=== PATIENT | male | born 1995 | race Caucasian/White ===

== ENCOUNTER 2017-02-22 20:37 | Emergency (ER) | payer BC ==
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
--- NOTE | 2017-02-22 22:20 | CT ---
EXAMINATION TYPE: CT brain nik paz con DATE OF EXAM: 02/22/2017 COMPARISON: 05/08/[address] scan HISTORY: Hyperflexion injury, pain to left side of neck. 30 second episode of being unable to move le gs. CT DLP: 1749.00 mGycm Automated exposure control for dose reduction was used. TECHNIQUE: CT scan of the head and cervical spine are performed without contrast. FINDINGS: Ventricles and sulci appear normal. There is no mass effect nor midline shift. There is n o sign of intracranial hemorrhage. The calvarium is intact. Cervical vertebra have normal alignment. Disc spaces are normal. Posterior elements are intact. There is no evidence for fracture. IMPRESSION: Negative CT scan of the brain. No change. Negative CT scan of the cervical spine.
[2017-02-22 23:13] VITALS: BP 112/80; PULSE 78; RESP 20; TEMP 98.2
== END 2017-02-22 23:13 | disposition home or self-care (01) ==
LOC: EC 20:37
DX: S16.1XXA Strain of muscle, fascia and tendon at neck level, initial encounter (principal)
CPT/HCPCS: 70450; 72125; 99283

== ENCOUNTER → 2019-10-09 | Outpatient (CLI) | payer BC ==
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
== END | disposition home or self-care (01) ==
LOC: RADXRMAIN 13:41
PROVIDERS: ATTEND Family Medicine
DX: R07.81 Pleurodynia (principal)
CPT/HCPCS: 71046

== ENCOUNTER 2021-01-22 16:21 | Emergency (ER) | payer BC ==
[2021-01-22 16:27] VITALS: BP 149/98; PULSE 97; RESP 18; TEMP 98
[2021-01-22] MEDS ORDERED: IBUPROFEN 600 MG TAB PO STA (16:55)
[2021-01-22] MEDS ORDERED: ACETAMINOPHEN TAB 325 MG TAB PO STA (16:55)
[2021-01-22] MEDS ORDERED: DIPH,PERTUS(ACELL)TETVAC-LF 0.5 ML VIAL IM ONE (16:55)
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
--- NOTE | 2021-01-22 17:26 | XR ---
EXAMINATION TYPE: XR shoulder complete RT DATE OF EXAM: 01/22/2021 COMPARISON: NONE HISTORY: Trauma. Pain. TECHNIQUE: 3 views FINDINGS: Glenohumeral joint is intact. There is malalignment of the AC joint. There is widening of t he AC joint space that measures 12 mm and there is also separation at the coracoclavicular joint. The re is inferior displacement of the acromion 7 mm. No fracture seen. IMPRESSION: There is evidence of ligamentous tear at the AC joint and coracoclavicular joint.
[2021-01-22] MEDS ORDERED: ACET/COD 300 MG/30 MG STARTER PACK 6 TAB BTL PO STA (18:11)
== END 2021-01-22 18:20 | disposition home or self-care (01) ==
LOC: EC 16:21
DX: S43.101A Unspecified dislocation of right acromioclavicular joint, initial encounter (principal); S43.81XA Sprain of other specified parts of right shoulder girdle, initial encounter; S30.810A Abrasion of lower back and pelvis, initial encounter; F17.290 Nicotine dependence, other tobacco product, uncomplicated; J45.909 Unspecified asthma, uncomplicated; Z23 Encounter for immunization; V86.06XA Driver of dirt bike or motor/cross bike injured in traffic accident, initial encounter; Y93.55 Activity, bike riding; Y92.410 Unspecified street and highway as the place of occurrence of the external cause
CPT/HCPCS: 90471; 90715; 99284

== ENCOUNTER 2021-03-13 19:20 | Emergency (ER) | payer BC, OTHER ==
[2021-03-13 19:58] VITALS: BP 128/90; PULSE 94; RESP 18; TEMP 98.6
[2021-03-13 20:58] LABS: Amphetamine Screen,Urine Not Detected (NotDetected); Barbiturate Screen,Urine Not Detected (NotDetected); Benzodiazepines Screen,Urine Not Detected (NotDetected); Cocaine Screen,Urine Not Detected (NotDetected); Methadone Screen, Urine Not Detected (NotDetected); Opiate Screen,Urine Not Detected (NotDetected); Oxycodone Screen, Urine Not Detected (NotDetected); Phencyclidine Screen,Urine Not Detected (NotDetected); Tricyclic Antidepressant,Urine Not Detected (NotDetected); Urn Cannabinoid Scrn Detected (NotDetected)
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
== END 2021-03-13 21:55 | disposition home or self-care (01) ==
LOC: EC 19:20
DX: Z02.83 Encounter for blood-alcohol and blood-drug test (principal); J45.909 Unspecified asthma, uncomplicated; F17.290 Nicotine dependence, other tobacco product, uncomplicated
CPT/HCPCS: 80306; 99282

== ENCOUNTER 2021-03-25 11:14 | Emergency (ER) | payer BC ==
[2021-03-25] MEDS ORDERED: ONDANSETRON 4 MG/2 ML VIAL IVP STA (11:20)
[2021-03-25] MEDS ORDERED: SODIUM CHLORIDE 0.9% 1,000 ML IV STA (11:20)
[2021-03-25] MEDS ORDERED: KETOROLAC 15 MG/ML 1 ML VIAL IVP STA (11:20)
[2021-03-25] MEDS ORDERED: HYDROmorphone 0.5 MG/0.5 ML SYRINGE IVP STA (11:20)
[2021-03-25 11:26] VITALS: TEMP 97.2
--- NOTE | 2021-03-25 11:39 | ED ---
General Adult HPI - General Chief complaint: Abdominal Pain Stated complaint: LL QUADRANT PAIN Time Seen by Provider: 03/25/21 11:15 Source: patient, EMS, RN notes reviewed, old records reviewed Mode of arrival: EMS Limitations: physical limitation - History of Present Illness Initial comments: This is a 26-year-old male who presents emergency department stating that he had sudden onset of left lower quadrant abdominal pain that radiates to his back per patient states never expressing like this before. According to EMS he Passed out secondary to pain and was very nauseated. Patient is also diaphoretic according to EMS. Patient states he has had no difficulty urinating no hematuria. Patient denies feeling bad prior to the sudden onset of pain. Patient denies any trauma. Patient denies any chest pain difficulty breathing shortness of breath. - Related Data Previous Rx's Medication Instructions Recorded Ketorolac [Toradol] 10 mg PO Q6HR #15 tab 03/25/21 Tamsulosin [Flomax] 0.4 mg PO DAILY #10 cap 03/25/21 Allergies Allergy/AdvReac Type Severity Reaction Status Date / Time No Known Allergies Allergy Verified 03/25/21 11:57 Review of Systems ROS Statement: Those systems with pertinent positive or pertinent negative responses have been documented in the HPI. ROS Other: All systems not noted in ROS Statement are negative. Past Medical History Past Medical History: Asthma Additional Past Medical History / Comment(s): Hyponatremia History of Any Multi-Drug Resistant Organisms: None Reported Past Surgical History: Ear Surgery, Orthopedic Surgery, Tonsillectomy Past Psychological History: No Psychological Hx Reported Smoking Status: Vaper Past Alcohol Use History: None Reported Past Drug Use History: None Reported, Marijuana General Exam - General Exam Comments Initial Comments: GENERAL: Patient is well-developed and well-nourished. Patient is nontoxic and well- hydrated and is in severe distress. ENT: Neck is soft and supple. No significant lymphadenopathy is noted. Oropharynx is clear. Moist mucous membranes. Neck has full range of motion without eliciting any pain. EYES: The sclera were anicteric and conjunctiva were pink and moist. Extraocular movements were intact and pupils were equal round and reactive to light. Eyelids were unremarkable. PULMONARY: Unlabored respirations. Good breath sounds bilaterally. No audible rales rhonchi or wheezing was noted. CARDIOVASCULAR: There is a regular rate and rhythm without any murmurs gallops or rubs. ABDOMEN: Left lower quadrant tenderness with palpation. GENITALIA: On examination there was no tenderness swelling or redness of the scrotum or testicle. There was no hernia noted. I could not stand the patient up to do a better hernia exam because of his pain. SKIN: Skin is clear with no lesions or rashes and otherwise unremarkable. NEUROLOGIC: Patient is alert and oriented x3. Cranial nerves II through XII are grossly intact. Motor and sensory are also intact. Normal speech, volume and content. Symmetrical smile. MUSCULOSKELETAL: Normal extremities with adequate strength and full range of motion. LYMPHATICS: No significant lymphadenopathy is noted PSYCHIATRIC: Normal psychiatric evaluation. Limitations: physical limitation Course Vital Signs 03/25/21 03/25/21 03/25/21 11:16 11:55 12:26 Temperature 97.2 F L Pulse Rate 80 80 77 Respiratory 26 H 18 18 Rate Blood Pressure 136/96 134/63 O2 Sat by Pulse 98 97 Oximetry Medical Decision Making - Medical Decision Making Patient received Toradol Dilaudid and Zofran. Computed tomography scan shows a 1-2 mm obstructing kidney stone in the left with hydroureter. Patient had pain relief with medications given an ED. - Lab Data Result diagrams: 03/25/21 11:51 03/25/21 11:51 Lab Results 03/25/21 03/25/21 03/25/21 Range/Units 11:51 11:51 11:51 WBC 8.3 (3.8-10.6) k/uL RBC 5.18 (4.30-5.90) m/uL Hgb 16.1 (13.0-17.5) gm/dL Hct 45.1 (39.0-53.0) % MCV 87.0 (80.0-100.0) fL MCH 31.0 (25.0-35.0) pg MCHC 35.7 (31.0-37.0) g/dL RDW 11.8 (11.5-15.5) % Plt Count 218 (150-450) k/uL MPV 7.5 Neutrophils % 64 % Lymphocytes % 25 % Monocytes % 4 % Eosinophils % 5 % Basophils % 1 % Neutrophils # 5.3 (1.3-7.7) k/uL Lymphocytes # 2.1 (1.0-4.8) k/uL Monocytes # 0.3 (0-1.0) k/uL Eosinophils # 0.4 (0-0.7) k/uL Basophils # 0.1 (0-0.2) k/uL Sodium 139 (137-145) mmol/L Potassium 3.9 (3.5-5.1) mmol/L Chloride 107 (98-107) mmol/L Carbon Dioxide 20 L (22-30) mmol/L Anion Gap 12 mmol/L BUN 15 (9-20) mg/dL Creatinine 0.91 (0.66-1.25) mg/dL Est GFR (CKD-EPI)AfAm >90 (>60 ml/min/1.73 sqM) Est GFR (CKD-EPI)NonAf >90 (>60 ml/min/1.73 sqM) Glucose 110 H (74-99) mg/dL Plasma Lactic Acid Nathen 3.1 H* (0.7-2.0) mmol/L Calcium 9.6 (8.4-10.2) mg/dL Total Bilirubin 0.8 (0.2-1.3) mg/dL AST 43 (17-59) U/L ALT 48 (4-49) U/L Alkaline Phosphatase 73 (38-126) U/L Total Protein 7.0 (6.3-8.2) g/dL Albumin 4.2 (3.5-5.0) g/dL Amylase 33 (30-110) U/L Lipase 65 (23-300) U/L Disposition Clinical Impression: Kidney stone Disposition: HOME SELF-CARE Condition: Good Instructions (If sedation given, give patient instructions): Kidney Stones (ED) Prescriptions: Tamsulosin [Flomax] 0.4 mg PO DAILY #10 cap Ketorolac [Toradol] 10 mg PO Q6HR #15 tab Is patient prescribed a controlled substance at d/c from ED?: No Referrals: Elliott Lopez MD [Primary Care Provider] - 1-2 days Time of Disposition: 12:48
[2021-03-25 11:56] VITALS: RESP 18
--- NOTE | 2021-03-25 11:58 | XR ---
EXAMINATION TYPE: XR KUB DATE OF EXAM: 03/25/2021 COMPARISON: NONE HISTORY: Pain TECHNIQUE: One view abdominal series FINDINGS: The osseous structures are intact. The bowel gas pattern is nonspecific. Lung bases are clear. IMPRESSION: 1. Nonspecific abdomen.
--- NOTE | 2021-03-25 12:03 | CT ---
EXAMINATION TYPE: CT abdomen pelvis wo con DATE OF EXAM: 03/25/2021 COMPARISON: None HISTORY: LLQ pain, possible torsion per RN CT DLP: 1368.4 mGycm Automated exposure control for dose reduction was used. TECHNIQUE: Helical acquisition of images was performed from the lung bases through the pelvis. FINDINGS: LUNG BASES: No significant abnormality is appreciated. LIVER/GB: Diffuse low-attenuation throughout the liver correlate for hepatic steatosis or hepatocellu lar disease. PANCREAS: No significant abnormality is seen. SPLEEN: No significant abnormality is seen. ADRENALS: No significant abnormality is seen. KIDNEYS: Mild to moderate left hydronephrosis with a 2 mm left UVJ calcification a result in obstruct ion. ADENOPATHY: None visualized. OSSEOUS STRUCTURES: No significant abnormality is seen. BOWEL: No significant abnormality is seen. OTHER: No free fluid or free air. Aorta of normal caliber. IMPRESSION: MILD TO MODERATE LEFT HYDRONEPHROSIS SECONDARY TO OBSTRUCTING DISTAL UVJ CALCULUS MEASURING 1 TO 2 MM . HEPATIC STEATOSIS
[2021-03-25 12:12] LABS: Basophils # (A) 0.1 k/uL (0-0.2); Basophils % (A) 1 %; Eosinophils # (A) 0.4 k/uL (0-0.7); Eosinophils % (A) 5 %; HCT 45.1 % (39.0-53.0); HGB 16.1 gm/dL (13.0-17.5); Lymphocytes # (A) 2.1 k/uL (1.0-4.8); Lymphocytes % (A) 25 %; MCHC 35.7 g/dL (31.0-37.0); Mean Platelet Volume 7.5; Monocytes # (A) 0.3 k/uL (0-1.0); Monocytes % (A) 4 %; Neutrophils # (A) 5.3 k/uL (1.3-7.7); Neutrophils % (A) 64 %; Platelet Count 218 k/uL (150-450); RBC 5.18 m/uL (4.30-5.90); RDW 11.8 % (11.5-15.5); WBC 8.3 k/uL (3.8-10.6)
[2021-03-25 12:20] LABS: ALT 48 U/L (4-49); AST 43 U/L (17-59); African American GFR (CKD) >90 (>60 ml/min/1.73 sqM); Albumin 4.2 g/dL (3.5-5.0); Alkaline Phosphatase 73 U/L (38-126); Amylase 33 U/L (30-110); Anion Gap 12 mmol/L; Blood Urea Nitrogen 15 mg/dL (9-20); Calcium 9.6 mg/dL (8.4-10.2); Carbon Dioxide 20 mmol/L (22-30); Chloride 107 mmol/L (98-107); Glucose 110 mg/dL (74-99); Lipase 65 U/L (23-300); Non-African American GFR(CKD) >90 (>60 ml/min/1.73 sqM); Potassium 3.9 mmol/L (3.5-5.1); Sodium 139 mmol/L (137-145); Total Bilirubin 0.8 mg/dL (0.2-1.3)
[2021-03-25] MEDS ORDERED: ACET/COD 300 MG/30 MG STARTER PACK 6 TAB BTL PO STA (13:01)
[2021-03-25 13:09] VITALS: BP 128/76; PULSE 88
== END 2021-03-25 13:17 | disposition home or self-care (01) ==
LOC: EC 11:14
DX: N20.0 Calculus of kidney (principal); J45.909 Unspecified asthma, uncomplicated; F17.290 Nicotine dependence, other tobacco product, uncomplicated
CPT/HCPCS: 80053; 82150; 83605; 83690; 85025; 74018; 74176; 96374; 96375; 96361; 99285; J2405; J1885; J1170

== ENCOUNTER 2022-10-18 06:45 | Emergency (ER) | payer OTHER ==
[2022-10-18 06:58] VITALS: RESP 18; TEMP 98.3
[2022-10-18] MEDS ORDERED: KETOROLAC 15 MG/ML 1 ML VIAL IM STA (08:30)
--- NOTE | 2022-10-18 08:35 | ED ---
Head Injury HPI - General Chief complaint: Head Injury Stated complaint: [facility] - Head Injury Time Seen by Provider: 10/18/22 08:16 Source: patient, RN notes reviewed Mode of arrival: ambulatory Limitations: no limitations - History of Present Illness Initial comments: Patient is a pleasant 27 her old male presenting to the emergency room at the direction of his employer when a brass fitting flew out of the machine at his work hitting him on the left upper side of his head. He was wearing his hard hat and the brass fitting hit the hard hat. He states that shortly after the event he took a Motrin for pain which was helpful but it has been off. He states that at the time of impact his vision in both eyes went black for a few seconds however he denies any loss of consciousness or fall to the ground. He is complaining of tenderness at the site of impact but denies any generalized headache, dizziness, altered mental status, confusion, nausea or vomiting. His past medical history significant for asthma and hyponatremia. - Related Data Previous Rx's Medication Instructions Recorded Ketorolac [Toradol] 10 mg PO Q6HR #15 tab 03/25/21 Tamsulosin [Flomax] 0.4 mg PO DAILY #10 cap 03/25/21 Ondansetron Odt [Zofran Odt] 4 mg PO Q8HR PRN #30 tab 10/20/22 Allergies/Adverse reactions: Allergies Allergy/AdvReac Type Severity Reaction Status Date / Time No Known Allergies Allergy Verified 10/20/22 05:13 Review of Systems ROS Statement: Those systems with pertinent positive or pertinent negative responses have been documented in the HPI. ROS Other: All systems not noted in ROS Statement are negative. Past Medical History Past Medical History: Asthma Additional Past Medical History / Comment(s): Hyponatremia History of Any Multi-Drug Resistant Organisms: None Reported Past Surgical History: Ear Surgery, Orthopedic Surgery, Tonsillectomy Past Psychological History: No Psychological Hx Reported Smoking Status: Vaper Past Alcohol Use History: Occasional Past Drug Use History: None Reported, Marijuana General Exam Limitations: no limitations General appearance: alert, in no apparent distress Head exam: Present: normocephalic, normal inspection, other (tenderness left parietal region ) Expanded Head exam: Absent: laceration, abrasion, hematoma, tenderness of temporal artery Eye exam: Present: normal appearance, PERRL, EOMI. Absent: scleral icterus, conjunctival injection, periorbital swelling ENT exam: Present: normal exam, normal oropharynx, mucous membranes moist Neck exam: Present: normal inspection, full ROM. Absent: tenderness Respiratory exam: Absent: respiratory distress, accessory muscle use Cardiovascular Exam: Present: regular rate GI/Abdominal exam: Absent: distended Extremities exam: Present: normal inspection, full ROM. Absent: pedal edema, joint swelling Back exam: Present: normal inspection, full ROM Neurological exam: Present: alert, oriented X3, CN II-XII intact Psychiatric exam: Present: normal affect, normal mood Skin exam: Present: warm, dry, intact, normal color. Absent: rash Course Vital Signs 10/18/22 10/18/22 06:55 09:58 Temperature 98.3 F Pulse Rate 82 78 Respiratory 18 18 Rate Blood Pressure 166/103 144/87 O2 Sat by Pulse 98 99 Oximetry Medical Decision Making - Medical Decision Making Was pt. sent in by a medical professional or institution (, PA, LICENSED OCCUPATIONAL THERAPIST, urgent care, hospital, or assisted...) When possible be specific @ -His employer Did you speak to anyone other than the patient for history (EMS, parent, family, police, friend...)? What history was obtained from this source @ -No Did you review nursing and triage notes (agree or disagree)? Why? @ -I reviewed and agree with nursing and triage notes Were old charts reviewed (outside hosp., previous admission, EMS record, old EKG, old radiological studies, urgent care reports/EKG's, assisted records)? Report findings @ -No old charts were reviewed Differential Diagnosis (chest pain, altered mental status, abdominal pain women, abdominal pain men, vaginal bleeding, weakness, fever, dyspnea, syncope, headache, dizziness, GI bleed, back pain, seizure, CVA, palpatations, mental health, musculoskeletal)? @ -Differential Headache: Migraine, tension, cluster, carbon monoxide, central venous thrombosis, pension karma temporal arteritis, acute closure glaucoma, intercranial hemorrhage, mastoiditis, sinusitis, head injury, this is not meant to be an all-inclusive list. EKG interpreted by me (3pts min.). @ -None done X-rays interpreted by me (1pt min.). @ -None done CT interpreted by me (1pt min.). @ -CT of the brain without contrast: No skull fracture, no acute intracranial process including any hemorrhage, mass or shift. U/S interpreted by me (1pt. min.). @ -None done What testing was considered but not performed or refused? (CT, X-rays, U/S, labs)? Why? @ -None What meds were considered but not given or refused? Why? @ -None Did you discuss the management of the patient with other professionals (professionals i.e. , PA, LICENSED OCCUPATIONAL THERAPIST, lab, RT, psych nurse, social organization professor, ocean lifeguard, teacher, mechanical engineering officer, porter sample case)? Give summary @ -No Was smoking cessation discussed for >3mins.? @ -No Was critical care preformed (if so, how long)? @ -No Were there social determinants of health that impacted care today? How? (Homelessness, low income, unemployed, alcoholism, drug addiction, transportation, low edu. Level, literacy, decrease access to med. care, skilled nursing, rehab)? @ -No Was there de-escalation of care discussed even if they declined (Discuss DNR or withdrawal of care, Hospice)? DNR status @ -No What co-morbidities impacted this encounter? (DM, HTN, Smoking, COPD, CAD, Cancer, CVA, ARF, Chemo, Hep., AIDS, mental health diagnosis, sleep apnea, morbid obesity)? @ -None Was patient admitted / discharged? Hospital course, mention meds given and route, prescriptions, significant lab abnormalities, going to OR and other pertinent info. @ -27 her old male presenting to the emergency room at the direction of his employer when a brass fitting flew out of the machine at his work hitting him on the left upper side of his head. He was wearing his hard hat and the brass fitting hit the hard hat. Due to work injury will obtain CT of the head though with lack of loss of consciousness and bloods that her status low probability for abnormalities on CT. Will give Toradol for pain. No indication for laboratory studies however will obtain laboratory studies per his industrial health recommendations. CT of the brain negative for acute findings. Will keep off work for 24 hours to allow for rest after head injury. Advised use of [id number] pneumonia and or Tylenol as needed for pain. Questions and concerns answered. Return parameters to the emergency room discussed. Will discharge home in stable condition utilizing [id number] Tylenol or Motrin as needed for headache related to closed head injury and follow-up with industrial health per your employer's recommendations. Undiagnosed new problem with uncertain prognosis? @ -No Drug Therapy requiring intensive monitoring for toxicity (Heparin, Nitro, Insulin, Cardizem)? @ -No Were any procedures done? @ -No Diagnosis/symptom? @ -Closed head injury Acute, or Chronic, or Acute on Chronic? @ -Acute Uncomplicated (without systemic symptoms) or Complicated (systemic symptoms)? @ -Uncomplicated Side effects of treatment? @ -No Exacerbation, Progression, or Severe Exacerbation? @ -No Poses a threat to life or bodily function? How? (Chest pain, [place], [place], pneumonia, PE, COPD, DKA, ARF, appy, cholecystitis, CVA, Diverticulitis, Homicidal, Suicidal, threat to staff... and all critical care pts) @ -No Case discussed with Dr. Renteria. - Radiology Data Radiology results: report reviewed, image reviewed Disposition Clinical Impression: Closed head injury Disposition: HOME SELF-CARE Condition: Stable Instructions (If sedation given, give patient instructions): Concussion (ED) Additional Instructions: Please utilize ibuprofen [id number] as needed for pain. May return to work on 10/20/2022. Please return to the Emergency Department if symptoms worsen or any other concerns. Is patient prescribed a controlled substance at d/c from ED?: No Referrals: Elliott Lopez MD [Primary Care Provider] - 1-2 days Time of Disposition: 09:33
--- NOTE | 2022-10-18 09:02 | CT ---
EXAMINATION TYPE: CT brain wo con DATE OF EXAM: 10/18/2022 COMPARISON: 02/22/2017 HISTORY: 27-year-old male with work-related head injury, blunt force to left side of head TECHNIQUE: Examination was done in axial plane without intravenous contrast. Coronal and sagittal r econstructions performed. CT DLP: 1158.4 mGycm Automated exposure control for dose reduction was used. FINDINGS: There is no evidence of acute intracranial hemorrhage, acute ischemic changes, mass, mass-effect, or extra-axial fluid collection. There is no effacement of cerebral sulci or basal subarachnoid cister ns. There is no hydrocephalus. There is no midline shift. Love-white matter distinction is preserv ed. Couple small polyps or mucous retention cysts along the floor of the left maxillary sinus measuring u p to 1.4 cm. Leftward nasal septal deviation. Orbits and globes are intact. Mastoid air cells well pn eumatized. No calvarial fracture. IMPRESSION: No acute intracranial abnormality seen.
[2022-10-18 09:59] VITALS: BP 144/87; PULSE 78
== END 2022-10-18 09:59 | disposition home or self-care (01) ==
LOC: EC 06:45
DX: S09.90XA Unspecified injury of head, initial encounter (principal); J45.909 Unspecified asthma, uncomplicated; F17.290 Nicotine dependence, other tobacco product, uncomplicated; F12.90 Cannabis use, unspecified, uncomplicated; W31.9XXA Contact with unspecified machinery, initial encounter
CPT/HCPCS: 70450; 99283; 96372; J1885

== ENCOUNTER 2022-10-20 05:10 | Emergency (ER) | payer OTHER ==
[2022-10-20 05:16] VITALS: TEMP 97.7
[2022-10-20] MEDS ORDERED: ONDANSETRON 4 MG/2 ML VIAL IVP STA (06:00)
[2022-10-20] MEDS ORDERED: SODIUM CHLORIDE 0.9% 1,000 ML IV ONE (06:00)
--- NOTE | 2022-10-20 06:01 | ED ---
General Adult HPI - General Chief complaint: Dizziness Stated complaint: Head Injury, Vomiting Time Seen by Provider: 10/20/22 05:17 Source: patient Mode of arrival: ambulatory Limitations: no limitations - History of Present Illness Initial comments: This is a 27-year-old male with no past medical history presents emergency department for nausea, vomiting and difficulty with focusing. The patient stated that he was seen in emergency department 2 days ago after he was hit in the setting ahead with a brass mami. The patient stated that he was at work when this occurred and he was seen and evaluated with a negative computed tomography scan. The patient stated that since that time, he has had intermittent nausea and vomiting associated with mild lightheadedness and dizziness as well as difficulties with concentration. The patient was sent in from his work for further evaluation and management. The patient denied any recurrent trauma. - Related Data Previous Rx's Medication Instructions Recorded Ketorolac [Toradol] 10 mg PO Q6HR #15 tab 03/25/21 Tamsulosin [Flomax] 0.4 mg PO DAILY #10 cap 03/25/21 Ondansetron Odt [Zofran Odt] 4 mg PO Q8HR PRN #30 tab 10/20/22 Allergies Allergy/AdvReac Type Severity Reaction Status Date / Time No Known Allergies Allergy Verified 10/20/22 05:13 Review of Systems ROS Statement: Those systems with pertinent positive or pertinent negative responses have been documented in the HPI. ROS Other: All systems not noted in ROS Statement are negative. Past Medical History Past Medical History: Asthma Additional Past Medical History / Comment(s): Hyponatremia History of Any Multi-Drug Resistant Organisms: None Reported Past Surgical History: Ear Surgery, Orthopedic Surgery, Tonsillectomy Past Psychological History: No Psychological Hx Reported Smoking Status: Vaper Past Alcohol Use History: Occasional Past Drug Use History: None Reported, Marijuana General Exam Limitations: no limitations General appearance: alert, in no apparent distress, obese Head exam: Present: atraumatic, normocephalic, normal inspection Eye exam: Present: normal appearance, PERRL Pupils: Present: normal accommodation ENT exam: Present: normal exam, normal oropharynx, mucous membranes moist Neck exam: Present: normal inspection, full ROM Respiratory exam: Present: normal lung sounds bilaterally Cardiovascular Exam: Present: regular rate, normal rhythm, normal heart sounds GI/Abdominal exam: Present: soft, normal bowel sounds Extremities exam: Present: normal inspection, full ROM Back exam: Present: normal inspection, full ROM Neurological exam: Present: alert, oriented X3, CN II-XII intact Psychiatric exam: Present: normal affect, normal mood Skin exam: Present: warm, dry Course Vital Signs 10/20/22 05:13 Temperature 97.7 F Pulse Rate 69 Respiratory 18 Rate Blood Pressure 133/86 O2 Sat by Pulse 98 Oximetry Medical Decision Making - Medical Decision Making Was pt. sent in by a medical professional or institution ([facility] [place], [employer], urgent care, hospital, or half-way...) When possible be specific @ -No Did you speak to anyone other than the patient for history (EMS, parent, family, police, friend...)? What history was obtained from this source @ -No Did you review nursing and triage notes (agree or disagree)? Why? @ -I reviewed and agree with nursing and triage notes Were old charts reviewed (outside hosp., previous admission, EMS record, old EKG, old radiological studies, urgent care reports/EKG's, half-way records)? Report findings @ -Yes, the patient's previous computed tomography scan of the head was reviewed and was confirmed to be negative. Differential Diagnosis (chest pain, altered mental status, abdominal pain women, abdominal pain men, vaginal bleeding, weakness, fever, dyspnea, syncope, headache, dizziness, GI bleed, back pain, seizure, CVA, palpatations, mental health)? @ -Concussion syndrome, intracranial hemorrhage, migraine EKG interpreted by me (3pts min.). @ -None X-rays interpreted by me (1pt min.). @ -None done CT interpreted by me (1pt min.). @ -None done U/S interpreted by me (1pt. min.). @ -None done What testing was considered but not performed or refused? (CT, X-rays, U/S, labs)? Why? @ -None What meds were considered but not given or refused? Why? @ -None Did you discuss the management of the patient with other professionals (professionals i.e. [employer] [place], POLICE LIEUTENANT, lab, RT, psych nurse, secondary social studies teacher, ceo [place], teacher, admissions officer, showcase trimmer)? Give summary @ -No Was smoking cessation discussed for >3mins.? @ -No Was critical care preformed (if so, how long)? @ -No Were there social determinants of health that impacted care today? How? (Homelessness, low income, unemployed, alcoholism, drug addiction, transportati on, low edu. Level, literacy, decrease access to med. care, [facility], rehab)? @ -No Was there de-escalation of care discussed even if they declined (Discuss DNR or withdrawal of care, Hospice)? DNR status @ -No What co-morbidities impacted this encounter? (DM, HTN, Smoking, COPD, CAD, Cancer, CVA, ARF, Chemo, Hep., AIDS, mental health diagnosis, sleep apnea, morbid obesity)? @ -None Was patient admitted / discharged? Hospital course, mention meds given and route, prescriptions, significant lab abnormalities, going to OR and other pertinent info. @ -The patient was seen and evaluated emergency department. Physical exam, the patient was resting in bed without any acute distress. Vital signs admission were stable. All of the patient's symptoms were likely secondary to concussive syndrome secondary to the closed head injury that he experienced 2 days prior. The patient stated that he was nauseous and was given Zofran as well as 1 L no sealing fluid in the emergency department. On reevaluation, the patient had improvement of his symptoms and was given a prescription for Zofran to be taken at home. The patient was advised to decrease his screen time allowing him to heal. The patient was also advised report back to the emergency department if he had worsening symptoms despite being on rest. The patient did state however that he needed to go to work in order to be able to pay his bills. The patient was advised to try and rest at home after going to work. The patient was agreeable to this and all his questions were answered appropriate. The patient was discharged home in stable condition. Undiagnosed new problem with uncertain prognosis? @ -No Drug Therapy requiring intensive monitoring for toxicity (Heparin, Nitro, Insulin, Cardizem)? @ -No Were any procedures done? @ -No Diagnosis/symptom? @ -Concussive syndrome Acute, or Chronic, or Acute on Chronic? @ -Acute Uncomplicated (without systemic symptoms) or Complicated (systemic symptoms)? @ -Uncomplicated Side effects of treatment? @ -No Exacerbation, Progression, or Severe Exacerbation? @ -No Poses a threat to life or bodily function? How? (Chest pain, [place], [place], pneumonia, PE, COPD, DKA, ARF, appy, cholecystitis, CVA, Diverticulitis, Homicidal, Suicidal, threat to staff... and all critical care pts) @ -No Disposition Clinical Impression: Concussion Disposition: HOME SELF-CARE Condition: Stable Instructions (If sedation given, give patient instructions): Concussion (ED) Prescriptions: Ondansetron Odt [Zofran Odt] 4 mg PO Q8HR PRN #30 tab PRN Reason: Nausea Is patient prescribed a controlled substance at d/c from ED?: No Referrals: Elliott Lopez MD [Primary Care Provider] - 1-2 days Time of Disposition: 05:30
[2022-10-20 06:57] VITALS: BP 130/87; PULSE 62; RESP 16
== END 2022-10-20 06:57 | disposition home or self-care (01) ==
LOC: EC 05:10
DX: S06.0XAA Concussion with loss of consciousness status unknown, initial encounter (principal); R40.2362 Coma scale, best motor response, obeys commands, at arrival to emergency department; R40.2142 Coma scale, eyes open, spontaneous, at arrival to emergency department; R40.2252 Coma scale, best verbal response, oriented, at arrival to emergency department; J45.909 Unspecified asthma, uncomplicated; E66.9 Obesity, unspecified; F17.290 Nicotine dependence, other tobacco product, uncomplicated; F12.90 Cannabis use, unspecified, uncomplicated; Z68.33 Body mass index [BMI] 33.0-33.9, adult; W22.8XXA Striking against or struck by other objects, initial encounter; Y99.0 Civilian activity done for income or pay
CPT/HCPCS: 99284; 96374; 96361; J2405